=== PATIENT | male | born 1950 | race Caucasian/White ===

== ENCOUNTER → 2022-08-22 14:40 | Outpatient (CLI) | payer MEDICARE, OTHER, SELFPAY ==
--- NOTE | 2022-08-22 14:43 | DI.RAD.S_ITS ---
PROCEDURE: XR RIBS RT MIN 3V W CXR 1V INDICATIONS: fall, right side rib pain TECHNIQUE: 4 views of the right ribs were acquired, along with a single view chest. COMPARISON: None. FINDINGS: Surgical changes and devices: None. Bones and chest wall: No fractures or dislocations. No suspicious bony lesions. Overlying soft tissues appear unremarkable. Lungs and pleura: No pleural effusions or pneumothorax. Lungs appear clear. Mediastinum: Mediastinal contours appear normal. Heart size is normal. IMPRESSION: No evidence of displaced right rib fracture. No evidence acute pulmonary process. Dictated by: Rufus Urena M.D. on 08/22/2022 at 15:07 Approved by: Rufus Urena M.D. on 08/22/2022 at 15:09
== END ==
PROVIDERS: Referring Provider Student in an Organized Health Care Education/Training Program; Visit Provider Student in an Organized Health Care Education/Training Program
DX: R07.81 Pleurodynia (principal)
CPT/HCPCS: 71101

== ENCOUNTER → 2022-12-09 10:15 | Outpatient (CLI) | payer MEDICARE, OTHER, SELFPAY ==
[2022-12-09 11:45] LABS: Influenza A - CEPHEID Flu A NEGATIVE (NEGATIVE); Influenza B - CEPHEID Flu B NEGATIVE (NEGATIVE); Respiratory Syncytial Virus Negative (Negative)
[2022-12-09 11:55] LABS: COVID-19 CEPHEID 4-PLEX PCR Negative (Negative)
== END ==
PROVIDERS: Visit Provider Nurse Practitioner Family
DX: R53.83 Other fatigue (principal); Z20.828 Contact with and (suspected) exposure to other viral communicable diseases
CPT/HCPCS: 0241U

== ENCOUNTER → 2022-12-17 09:18 | Outpatient (CLI) | payer MEDICARE, OTHER, SELFPAY ==
--- NOTE | 2022-12-17 09:19 | DI.RAD.S_ITS ---
PROCEDURE: XR HIP W PEL IF DONE PARVEEN MIN 4V INDICATIONS: BILATERAL HIP PAIN TECHNIQUE: AP pelvis with lateral view(s) of the bilateral hip(s). COMPARISON: None. FINDINGS: Bones: No fractures or dislocations. Pelvic ring appears intact. No suspicious bony lesions. Mild right and minimal left hip joint space narrowing with marginal spurring. Soft tissues: The visualized bowel gas pattern is normal. No suspicious soft tissue calcifications. Surgical clips projecting over the pelvis. IMPRESSION: Mild right and minimal left osteoarthritic changes of the hips. Dictated by: Cecil Horner M.D. on 12/17/2022 at 13:31 Approved by: Cecil Horner M.D. on 12/17/2022 at 13:33
== END ==
PROVIDERS: Referring Provider Anesthesiology; Visit Provider Anesthesiology
DX: M70.61 Trochanteric bursitis, right hip (principal); M70.62 Trochanteric bursitis, left hip; M16.0 Bilateral primary osteoarthritis of hip; M25.552 Pain in left hip; M25.551 Pain in right hip
CPT/HCPCS: 73522; 99214

== ENCOUNTER → 2023-01-03 06:53 | Outpatient (CLI) | payer MEDICARE, OTHER, SELFPAY ==
[2023-01-03 08:18] LABS: Hemoglobin A1C% w Est Avg Glu 4.9 % (4.0-6.0)
[2023-01-03 08:22] LABS: Add Manual Diff / Slide Review NO; Basophils Absolute Auto 0 /uL (0-100); Eosinophils Absolute Auto 100 /uL (0-450); Eosinophils Percent Auto 1.9 % (2-4); Hematocrit 42.9 % (41-53); Hemoglobin 14.8 g/dL (13.5-17.5); Lymphocytes Absolute Auto 1600 /uL (1100-4500); Mean Corpuscular HGB Conc 34.6 % (30-36); Mean Corpuscular Hemoglobin 31.1 PG (26-34); Mean Corpuscular Volume 90.1 fL (80-100); Monocytes Absolute Auto 600 /uL (0-900); Monocytes Percent Auto 11.7 % (3-14); Neutrophils Absolute Auto 2500 /uL (1500-7000); Neutrophils Percent Auto 51.4 % (50-75); Platelet Count 182 X10^3/uL (150-400); Red Blood Cell Count 4.76 X10^6/uL (4.5-5.9); Red Cell Distribution Width 13.8 % (11.6-14.8); White Blood Cell Count 4.8 X10^3/uL (4.5-11.0)
[2023-01-03 08:27] LABS: Alanine Aminotransferase 32 IU/L (<50); Albumin 4.3 g/dL (3.5-5.0); Albumin Globulin Ratio 1.7 (1.0-2.8); Alkaline Phosphatase 64 U/L (38-126); Aspartate Aminotransferase 24 IU/L (17-59); BUN Creatinine Ratio 31.8 (6-22); Bilirubin Total 0.8 mg/dL (0.2-1.3); Blood Urea Nitrogen 28 mg/dL (9-20); Calcium 9.6 mg/dL (8.4-10.2); Carbon Dioxide 26 mmol/L (22-32); Chloride 104 mmol/L (98-107); Cholesterol 209 mg/dL (140-199); Estimated Glomerular Filt Rate > 60 mL/min (>60); Globulin 2.6 g/dL (1.7-4.1); Glucose 90 mg/dL (80-110); HDL Cholesterol 48 mg/dL (40-60); HEMOLYSIS < 15 (0-50); LDL Cholesterol Calculated 139 mg/dL (<100); Potassium 4.6 mmol/L (3.4-5.1); Sodium 138 mmol/L (137-145); Total Protein 6.9 g/dL (6.3-8.2); Triglycerides 109 mg/dL (35-150)
[2023-01-03 10:50] LABS: Hep C Virus Ab w/Reflex Quant NEGATIVE s/c (NEGATIVE)
== END ==
PROVIDERS: PCP Family Medicine; Referring Provider Family Medicine; Visit Provider Family Medicine
DX: Z00.00 Encounter for general adult medical examination without abnormal findings (principal); E78.5 Hyperlipidemia, unspecified; R35.1 Nocturia; Z11.59 Encounter for screening for other viral diseases; N13.8 Other obstructive and reflux uropathy; N40.1 Benign prostatic hyperplasia with lower urinary tract symptoms; Z12.5 Encounter for screening for malignant neoplasm of prostate
CPT/HCPCS: 36415; 80053; 80061; 83036; 84153; 85025; 86803

== ENCOUNTER 2023-01-31 08:50 | Emergency (ER) | payer MEDICARE, OTHER, SELFPAY ==
[2023-01-31 08:59] VITALS: BP 148/91; PULSE 95; RESP 16; TEMP 36.7; O2SAT 100; BMI 25.8
--- NOTE | 2023-01-31 11:24 | ED.SKABFB ---
HPI - Skin/Abscess/Foreign Bdy General Chief complaint: Skin/Abscess/Foreign Body Stated complaint: rash on face and fever,chills,aches Time Seen by Provider: 01/31/23 09:01 Source: patient Mode of arrival: Ambulatory Limitations: no limitations History of Present Illness HPI narrative: This is a 72-year-old male presenting to the emergency department due to a right-sided rash for the last 5 days as well as some fevers and chills. He was reporting a redness affecting the right side of his face with some dull aching pain. Denies any vesicles or open wounds. He is had subjective fevers and chills. Patient states that he had this as well couple of months ago which eventually improved on its own. He is tried Benadryl and hydrocortisone cream without any improvement. Related Data Previous Rx's Medication Instructions Recorded tamsulosin 0.4 mg capsule 0.4 mg PO DAILY #30 caps 01/02/23 sodium,potassium,mag sulfates 17.5 See Rx Instructions PO .COMPLEX 02/03/23 gram-3.13 gram-1.6 gram oral soln #354 mL (Suprep Bowel Prep Kit) atorvastatin 20 mg tablet 40 mg (2 x 20 mg) PO DAILY #90 tabs 02/20/23 Allergies Allergy/AdvReac Type Severity Reaction Status Date / Time No Known Drug Allergies Allergy Verified 02/02/23 09:53 Review of Systems Review of Systems Narrative: GENERAL: Reports fever and chills, denies sweats. HEENT: Denies sinus pain, ear pain, sore throat, difficulty swallowing, dizziness. RESPIRATORY: Denies dyspnea, cough, wheezing, hemoptysis, sputum. CARDIOVASCULAR: Denies chest pain, palpitations, orthopnea, edema, GASTROINTESTINAL: Denies nausea, vomiting, abdominal pain, diarrhea, constipation, melena. : Denies dysuria, frequency, incontinence, hematuria, urinary retention. MUSCULOSKELETAL: denies weakness, joint pain, or bony pain SKIN: Rash affecting right side of face NEUROLOGIC: Denies weakness, headache, numbness, change in speech, confusion, seizures, incoordination. PSYCHIATRIC: No concerning psychosocial issues. 12 point review of systems is negative except for those stated above Patient History Medical History Wears glasses Hearing loss Knee pain (~2000) Fractures Measles (~195) Bilateral primary osteoarthritis of hip Bilateral hip pain (~2018) Greater trochanteric bursitis of both hips Surgical History Anesthesia H/O hemorrhoidectomy Hx of tonsillectomy (~1966) H/O knee surgery (~2001) H/O hernia repair Family History Father Lung cancer Mother Natural Social History marital status: number of children: 4 household members: spouse lives independently: Yes housing: house education level: college occupational status: other (retired) current occupational exposures/hazards: No 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 HEAD: Atraumatic. Normocephalic. EYES: Pupils equal round and reactive. Extraocular motions intact. No scleral icterus. No injection or drainage. No pain with ocular movement. ENT: Nose without bleeding, purulent drainage. Throat without erythema, tonsillar hypertrophy or exudate. Airway patent. NECK: Trachea midline. Non tender CARDIOVASCULAR: Regular rate and rhythm without murmurs, gallops, or rubs. RESPIRATORY: Clear to auscultation. Breath sounds equal bilaterally. No wheezes, rales, or rhonchi. GASTROINTESTINAL: Abdomen soft, non-tender, nondistended. EXTREMITIES: No edema or joint tenderness. BACK: Nontender without deformity or crepitance. No flank tenderness. NEURO: AOx3. SKIN: Erythematous rash affecting the right side of the face. There was no evidence of any kind of abscesses or open wounds. It is somewhat tight and warm to the touch. No vesicles or rash in the inner ear canal or affecting the conjunctiva of the right ear. Initial Vital Signs Initial Vital Signs: Vital Signs Temperature 98.0 F 01/31/23 08:59 Pulse Rate 95 H 01/31/23 08:59 Respiratory Rate 16 01/31/23 08:59 Blood Pressure 148/91 H 01/31/23 08:59 Pulse Oximetry 100 01/31/23 08:59 Oxygen Delivery Method Room Air 01/31/23 08:59 Course Vital Signs Vital signs: Vital Signs - 8 hr 01/31/23 12:01 Pulse Rate 77 Respiratory Rate 12 Blood Pressure 138/72 Pulse Oximetry 98 Oxygen Delivery Method Room Air MDM - Skin/Abscess/Foreign Bdy MDM Narrative Medical decision making narrative: MDM * differential diagnosis includes but not limited to cellulitis, preseptal cellulitis, orbital cellulitis, shingles, allergic reaction * Prior records reviewed: Patient was seen 2 months ago for shingles with the walk-in clinic with concerns for redness, burning pain to the right side of his face. Patient was started on valacyclovir. He was later seen 4 days later with reports of the improvement of the right side of his face but he feels a burning pain across his head and left side of face. He was also feeling very fatigued and had fever. Patient was instructed to continue taking the valacyclovir as well as anti-inflammatory. * My lab interpretation: None obtained * My imgaing interpretation: None obtained * Clinical Decision Rules/Scores evaluated: None * Independent discussions with: None ED Course: This is a 72-year-old male presents emergency department due to a rash affecting the right side of his face as well as some fevers and chills. The rash does not appear to be shingles like in nature as he is not describe any neuropathic pain or any open vesicles. The rash is diffuse across the right side of his face. He has applied hydrocortisone cream and use Benadryl without any relief and do not suspect that this is allergic in nature. We will treat for possible cellulitic infection with oral antibiotics. He states that the rash began near his right ear and is not any significantly more localized around the right eye and lower concern for a preseptal cellulitis. He is not have any pain with ocular movement and no ocular symptoms and will not treat for orbital cellulitis. He isn't have any vesicles in his ear. We will prescribe oral antibiotics and recommended he follow up with his primary care provider for further testing. Based on history low concern for MRSA. Shared Decision Making: Discussed plan with patient who is comfortable with the plan. Social Considerations: None Disposition: Discharged to home Discharge Plan Departure Patient Disposition: Home Clinical Impression: Cellulitis Instructions: DI for Cellulitis -- Adult Activity Restrictions/Additional Instructions: Thank you for coming to the [facility] Emergency Department today. As we discussed we will treat you for possible bacterial cause of the rash affecting the right side of her face. I also recommend you speak with the primary care provider for follow-up if your symptoms continue as they will be able to do further testing like we discussed. Please use Tylenol for any fevers. I hope you feel better soon. Please follow up with your primary care provider within a week if your symptoms continue. If you do not have a primary care provider please contact the [facility] Resource line at [phone]. They will ask some questions about your medical history and help you get set up with a provider in the community. Prescriptions: No Action tamsulosin 0.4 mg capsule 0.4 mg PO DAILY Qty: 30 2RF sodium,potassium,mag sulfates [Suprep Bowel Prep Kit] 17.5-3.13-1.6 gram recon soln See Rx Instructions PO .COMPLEX Qty: 354 0RF Rx Instructions: take as directed by Physician atorvastatin 20 mg tablet 40 mg PO DAILY Qty: 90 2RF Referrals: Camilo Santos MD [Primary Care Provider] - Stand Alone Forms: Patient Portal/API
[2023-01-31 12:01] VITALS: BP 138/72; PULSE 77; RESP 12; O2SAT 98
== END 2023-01-31 12:02 | disposition home or self-care (01) ==
PROVIDERS: Emergency Provider Physician Assistant Medical; PCP Family Medicine
DX: L03.211 Cellulitis of face (principal)
CPT/HCPCS: 99281

== ENCOUNTER 2023-02-02 09:42 | Emergency (ER) | payer MEDICARE, OTHER, SELFPAY ==
[2023-02-02 09:46] VITALS: BP 129/75; PULSE 81; RESP 14; TEMP 36.6; O2SAT 100; BMI 25.8
--- NOTE | 2023-02-02 10:30 | PC.NURSE ---
Broken blood vessel in pts L eye. Not effecting vision, not painful. Pt is currently being treated for R sided facial cellulitis which is improving.
--- NOTE | 2023-02-02 10:42 | ED_ITS ---
HPI - Eye Problem General Chief complaint: Eye Problems Stated complaint: here T-2 for Celulitis, swelling in face Time Seen by Provider: 02/02/23 10:42 Source: patient Mode of arrival: Ambulatory Limitations: no limitations Related Data Previous Rx's Medication Instructions Recorded tamsulosin 0.4 mg capsule 0.4 mg PO DAILY #30 caps 01/02/23 atorvastatin 20 mg tablet 40 mg (2 x 20 mg) PO DAILY #90 tabs 01/07/23 cephalexin 500 mg capsule 500 mg PO QID 10 days #40 caps 01/31/23 Allergies Allergy/AdvReac Type Severity Reaction Status Date / Time No Known Drug Allergies Allergy Verified 02/02/23 09:53 Review of Systems Review of Systems ROS Unobtainable: All systems reviewed & are unremarkable except as noted in HPI and below Patient History Medical History Bilateral primary osteoarthritis of hip Bilateral hip pain Greater trochanteric bursitis of both hips Surgical History H/O hemorrhoidectomy Hx of tonsillectomy H/O knee surgery H/O hernia repair Family History Father Lung cancer Mother Natural Social History marital status: number of children: 4 household members: spouse lives independently: Yes housing: house education level: college occupational status: other (retired) current occupational exposures/hazards: No 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 Smoking Status: Never smoker alcohol intake: former substance use type: does not use Smoking Status: Never smoker alcohol intake frequency: holidays/special occasions only Substance Use Type: marijuana Exam Initial Vital Signs Initial Vital Signs: Vital Signs Temperature 97.8 F 02/02/23 09:46 Pulse Rate 81 02/02/23 09:46 Respiratory Rate 14 02/02/23 09:46 Blood Pressure 129/75 02/02/23 09:46 Pulse Oximetry 100 02/02/23 09:46 Oxygen Delivery Method Room Air 02/02/23 09:46 Course Vital Signs Vital signs: Vital Signs - 8 hr 02/02/23 09:46 Temperature 97.8 F Pulse Rate 81 Respiratory Rate 14 Blood Pressure 129/75 Pulse Oximetry 100 Oxygen Delivery Method Room Air Discharge Plan Departure Prescriptions: No Action tamsulosin 0.4 mg capsule 0.4 mg PO DAILY Qty: 30 2RF atorvastatin 20 mg tablet 40 mg PO DAILY Qty: 90 2RF cephalexin 500 mg capsule 500 mg PO QID 10 Days Qty: 40 0RF Referrals: Camilo Santos MD [Primary Care Provider] -
--- NOTE | 2023-02-02 11:17 | ED_ITS ---
HPI - Eye Problem <Mary Chiu PA-C - Last Filed: 02/02/23 19:49> General Chief complaint: Eye Problems Stated complaint: here T-2 for Celulitis, swelling in face Time Seen by Provider: 02/02/23 10:42 Source: patient Mode of arrival: Ambulatory History of Present Illness HPI Narrative: Patient is a 72 yo male reporting for evaluation of redness in the lateral corner of his left eye starting this morning. He denies any vision change to his left eye nor any pain with eye movement. He was seen in the emergency department 2 days ago for redness and swelling on the right side of his face which started around his right ear in his spread midline toward his right eye. He denies any pain in his right eye or redness with his right eye. He says since taking the cephalexin antibiotic prescribe that his redness and swelling has been improving. He denies having a follow up scheduled with primary care at this time. He states he does have a primary care Dr. Santos. Denies any fever. He does state that he is had some headaches at night since the rash onset. He reports that he is not had any diagnosis of high blood pressure nor takes any anticoagulants. He denies any trauma to his head. He denies any blurriness or double vision. Patient denies any neck pain or stiffness nor numbness, tingling or weakness in bilateral extremities. He denies risk of foreign body in his left eye. Related Data Previous Rx's Medication Instructions Recorded tamsulosin 0.4 mg capsule 0.4 mg PO DAILY #30 caps 01/02/23 atorvastatin 20 mg tablet 40 mg (2 x 20 mg) PO DAILY #90 tabs 01/07/23 cephalexin 500 mg capsule 500 mg PO QID 10 days #40 caps 01/31/23 Allergies Allergy/AdvReac Type Severity Reaction Status Date / Time No Known Drug Allergies Allergy Verified 02/02/23 09:53 Review of Systems <Mary Chiu PA-C - Last Filed: 02/02/23 19:49> Review of Systems Narrative: see HPI Patient History <Mary Chiu PA-C - Last Filed: 02/02/23 19:49> Medical History Wears glasses Hearing loss Knee pain (~2000) Fractures Measles (~1958) Bilateral primary osteoarthritis of hip Bilateral hip pain (~2018) Greater trochanteric bursitis of both hips Surgical History Anesthesia H/O hemorrhoidectomy Hx of tonsillectomy (~1966) H/O knee surgery (~2001) H/O hernia repair Family History Father Lung cancer Mother Natural Social History marital status: number of children: 4 household members: spouse lives independently: Yes housing: house education level: college occupational status: other (retired) current occupational exposures/hazards: No 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 Well-developed patient, in no acute distress. HEAD: Atraumatic. Normocephalic. EYES: Pupils equal round and reactive. Light reflex in same location bilate rally, Extraocular motions intact bilaterally without pain, peripheral vision intact bilaterally. No scleral icterus. Right conjunctiva clear. Subconjunctival hemorrhage in lateral corner of left eye, no swelling of left upper and lower eyelid, right eyelid has some puffiness in the upper lid with no erythema, no edema or erythema in the left lower lid. ENT: TMs pearly gilbert with good COL, Nontender to mastoid, tragus or pinna palpation. NECK: Trachea midline. Non tender. CARDIOVASCULAR: Regular rate and rhythm without murmurs, gallops, or rubs. RESPIRATORY: Clear to auscultation. Breath sounds equal bilaterally. No wheezes, rales, or rhonchi. NEURO: AOx3. SKIN: Mild erythema over left cheek with no presence of vesicles, nor abscess <DO Jeferson Mackey Last Filed: 02/02/23 19:50> Initial Vital Signs Initial Vital Signs: Vital Signs Temperature 97.8 F 02/02/23 09:46 Pulse Rate 81 02/02/23 09:46 Respiratory Rate 14 02/02/23 09:46 Blood Pressure 129/75 02/02/23 09:46 Pulse Oximetry 100 02/02/23 09:46 Oxygen Delivery Method Room Air 02/02/23 09:46 Course <Mary Chiu PA-C - Last Filed: 02/02/23 19:49> Vital Signs Vital signs: Vital Signs - 8 hr 02/02/23 11:46 Pulse Rate 70 Respiratory Rate 14 Blood Pressure 123/73 Pulse Oximetry 98 Oxygen Delivery Method Room Air <DO Jeferson Mackey Last Filed: 02/02/23 19:50> Vital Signs Vital signs: Vital Signs - 8 hr 02/02/23 11:46 Pulse Rate 70 Respiratory Rate 14 Blood Pressure 123/73 Pulse Oximetry 98 Oxygen Delivery Method Room Air MDM - Eye Problem <MARLON Blackman Last Filed: 02/02/23 19:49> MDM Narrative Medical decision making narrative: Patient is a 72-year-old male presenting with symptoms consistent with left- sided subconjunctival hemorrhage. He denied any change to visual acuity. Was seen in the emergency department 2 days ago for cellulitis of the right side of his face. These 2 condition seem to be unrelated. He noted that the swelling of the right side of his face seem to be improving. Regarding the subconjunctival hemorrhage of his left eye, recommend no further treatment is necessary at this time. I advised him to follow up for further evaluation in the emergency department however if he should develop any left eye pain, change in vision or other concerning symptoms. No fluorescein staining was done as patient had no concern for foreign body involvement in no pain with eye movement. Patient does not appear to have disruption to acuity on physical examination. Findings and discharge diagnosis discussed with patient/family followed by verbalization of understanding Return precautions discussed with patient/family whom verbalize understanding of diagnosis and plan Discharge Plan Departure Patient Disposition: Home Clinical Impression: Subconjunctival hemorrhage, non-traumatic Qualifiers: Laterality: left Qualified Code(s): H11.32 - Conjunctival hemorrhage, left eye Instructions: DI for Subconjunctival Hemorrhage Activity Restrictions/Additional Instructions: Thank you for coming in today for care. You were seen today for evaluation of redness on the lateral side of your left eye. Your physical exam and history are consistent with a subconjunctival hemorrhage today. This should resolve over the next couple of weeks with no complications. There was no specific treatment needed. It appears to be unrelated to the cellulitis on the right side of your face. I am pleased to see that as we discussed, it appears your ce llulitis is improving based upon previous clinical report and your own observation. I recommend continuing follow up with primary care provider for continued evaluation to ensure continued healing. I recommend that you follow up in the emergency department if you should develop any vision change or pain with eye movement in your right or left eye, any numbness or tingling or weakness in extremities, or worsening of the swelling in the right side of your face. Prescriptions: No Action tamsulosin 0.4 mg capsule 0.4 mg PO DAILY Qty: 30 2RF atorvastatin 20 mg tablet 40 mg PO DAILY Qty: 90 2RF cephalexin 500 mg capsule 500 mg PO QID 10 Days Qty: 40 0RF Referrals: Camilo Santos MD [Primary Care Provider] - Stand Alone Forms: Patient Portal/API ED Sign-out <Agnes Mendez DO - Last Filed: 02/02/23 19:50> Cosign ED Attending Blaine Attestation: I was immediately available in the department for consultation. Documentation has been reviewed. Case was discussed.
[2023-02-02 11:46] VITALS: BP 123/73; PULSE 70; RESP 14; O2SAT 98
== END 2023-02-02 11:46 | disposition home or self-care (01) ==
PROVIDERS: Emergency Provider Physician Assistant; PCP Family Medicine
DX: H11.32 Conjunctival hemorrhage, left eye (principal)
CPT/HCPCS: 99281

== ENCOUNTER → 2023-02-14 08:39 | Outpatient (CLI) | payer MEDICARE, OTHER, SELFPAY | PROVIDERS: PCP Family Medicine; Referring Provider Family Medicine; Visit Provider Family Medicine | DX: Z23 Encounter for immunization (principal) | CPT/HCPCS: 90471; 90686 ==

== ENCOUNTER 2023-04-08 07:38 | Day surgery (SDC) | payer MEDICARE, OTHER, SELFPAY ==
--- NOTE | 2023-04-08 | PATH_ITS ---
[facility] Accession Number: [id number] No. of containers..01 Tissue . 01 Material submitted: . colon - ASCENDING POLYP . 01 Diagnosis: A. Ascending Colon Polyp, Polypectomy: Tubular adenoma. MRV 04/15/2023 1444 Local . 01 Electronically signed: . Christie Joe MD, Pathologist NPI- [id number] . 01 Gross description: . ASCENDING POLYP: Received in formalin is 1 fragment(s) of dial, soft tissue measuring 0.4 x 0.2 x 0.2 cm submitted entirely in 1 cassette(s) /RIVER 04/09/2023 1946 Local . 01 Pathologist provided ICD-10: D12.6 . 01 CPT . 863481 Specimen Comment: A courtesy copy of this report has been sent to [phone] Performed at: 01 [facility] [address] [place] [address], [place], [place] [id number] MD Marino Randall MD Phone: [phone]
[2023-04-08 07:45] VITALS: BP 130/81; PULSE 71; RESP 16; TEMP 36.3; O2SAT 100; BMI 25.7
[2023-04-08] MEDS: LACTATED RINGERS 1,000 ML 42 ML IV (08:06)
--- NOTE | 2023-04-08 08:36 | PM.HP.1 ---
History of Present Illness History of Present Illness Date Patient Seen: 04/08/23 Time Patient Seen: 08:36 Chief complaint: Screening Colonoscopy Narrative: 72-year-old man personal history of polyps here for screening colonoscopy. Last colonoscopy 5 years ago in [place] significant for 1 benign polyp. No family history of intestinal malignancy. No abdominal concerns today. [facility] Medical History Wears glasses Hearing loss Knee pain (~2000) Fractures Measles (~1958) Bilateral primary osteoarthritis of hip Bilateral hip pain (~2018) Greater trochanteric bursitis of both hips Surgical History Anesthesia H/O hemorrhoidectomy Hx of tonsillectomy (~1966) H/O knee surgery (~2001) H/O hernia repair Family History Father Lung cancer Mother Natural Social History marital status: number of children: 4 household members: spouse lives independently: Yes housing: house education level: college occupational status: other (retired) current occupational exposures/hazards: No 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 Smoking Status: Former smoker alcohol intake: former substance use type: does not use Meds Home Medications and Allergies Home Medications Medication Instructions Recorded Confirmed Type atorvastatin 20 mg tablet 40 mg (2 x 20 mg) PO DAILY #90 tabs 02/20/23 04/08/23 Rx tamsulosin 0.4 mg capsule 0.4 mg PO DAILY #30 caps 03/26/23 04/08/23 Rx Allergies Allergy/AdvReac Type Severity Reaction Status Date / Time No Known Drug Allergies Allergy Verified 04/02/23 08:32 Exam Vital Signs (past 8 hours): - 04/08/23 07:45 Temperature 97.4 F L Pulse Rate 71 Respiratory Rate 16 Blood Pressure 130/81 Pulse Oximetry 100 Oxygen Delivery Method Room Air Oxygen Delivery Method Room Air Narrative Exam Narrative: General adult man alert oriented no acute distress Chest nonlabored respiration Extremities warm well perfused Assessment & Plan Assessment & Plan narrative: The patient requires colorectal screening and colonoscopy is recommended. Technical details were discussed. Risks, benefits, alternatives explained. Risks including but not limited to myocardial infarction, aspiration, bleeding, pain, missed lesion, incomplete examination, need for further radiographic studies, colonic perforation, and need for major abdominal surgery were discussed. All questions were answered to their satisfaction, and they are in agreement with this plan.
[2023-04-08 09:04] VITALS: BP 97/68; PULSE 68; RESP 16; TEMP 36.3; O2SAT 96
--- NOTE | 2023-04-08 09:07 | P.OP.COLON_ITS ---
Operative Date/Time/Diagnoses Date of procedure: 04/08/23 Time of procedure: 09:07 Pre-op diagnosis: Personal history of colonic polyps Post-op diagnosis: other (Colonic polyps x1) Procedure & Clinicians Study performed: Colonoscopy and polypectomy Same procedure as scheduled: Yes Indications: Personal history of colonic polyps Colorectal screening Surgeon: Jay Chung Procedure Notes Procedure in detail: The history and physical was performed/updated and the patient is ASA class is 2. The procedure was discussed in detail with the patient. Potential risks complications including infection, bleeding, missed diagnosis, perforation, need for surgery, and were explained. Their questions were answered and informed consent was obtained. Patient was brought to the procedure room and placed standard monitoring equipment. The patient's vital signs were monitored continuously throughout the entire procedure. Prior to starting time-out was performed. The patient was placed in the left lateral recumbent position. Procedural sedation was administered by anesthesia. Examination began with a thorough inspection of the perianal area there was no evidence of fissures, fistulae, external hemorrhoids or cutaneous malignancy. The colonoscopy scope was then placed into the anal canal and was advanced to the cecum, which was identified by the ileocecal valve, the appendiceal orifice and the confluence of the taenia. The scope was then slowly withdrawn examining colon thoroughly in all directions, irrigating it of any residual stool. The scope was retroflexed within the rectum The patient tolerated the procedure well. They will be discharged once criteria are met. The prep was of good/excellent quality. The withdrawl time was 7 minutes. FINDINGS * Ascending colon 5 mm polyp removed with Jumbo forceps. Specimen(s): other (Ascending colon polyp) Impression: Colonic polyp x1 Post-procedure Plan for aftercare: Follow-up is dependent on pathology findings likely 5 years Disposition: same day surgery
[2023-04-08 09:09] VITALS: BP 91/58; PULSE 65; RESP 16; O2SAT 97
[2023-04-08 09:17] VITALS: BP 107/69; PULSE 65; RESP 16; O2SAT 98
[2023-04-08 09:20] VITALS: BP 107/69; PULSE 63; RESP 20; O2SAT 97
== END 2023-04-08 09:37 | disposition home or self-care (01) ==
PROVIDERS: PCP Family Medicine; Referring Provider Surgery; Visit Provider Surgery
PROC: 0DJD8ZZ Inspection of Lower Intestinal Tract, Via Natural or Artificial Opening Endoscopic (ICD-10-PCS; CPT 45378; principal; 2023-04-08 08:45)
DX: Z12.11 Encounter for screening for malignant neoplasm of colon (principal); Z86.010 Personal history of colon polyps; D12.2 Benign neoplasm of ascending colon
CPT/HCPCS: 45380; J2704

== ENCOUNTER → 2023-04-30 15:58 | Outpatient (CLI) | payer MEDICARE, OTHER, SELFPAY ==
--- NOTE | 2023-04-30 16:01 | DI.MRI.S_ITS ---
PROCEDURE: MR KNEE LT WO CON INDICATIONS: Left knee pain, status post meniscus repair TECHNIQUE: Noncontrast sagittal PD fast spin echo, STIR, and T2 fast spin echo with fat saturation, sagittal 3-D FLASH with fat saturation; coronal T1 spin echo and STIR, and axial PD fast spin echo with fat saturation and STIR through the knee. COMPARISON: [facility], CR, XR KNEE LT 3V, 04/30/2023, 16:02. FINDINGS: Image quality: Significant magnetic field inhomogeneity is noted on centered sequences with failure of fat suppression. Additional sequences were obtained using metal artifact reduction techniques. Diagnostic information is obtained. Anterior cruciate ligament: Intact. Posterior cruciate ligament: Intact. Medial collateral ligament: Intact. Lateral collateral ligament: Intact. Medial meniscus: There is irregular appearance of the posterior horn and posterior body of the medial meniscus that may be related to prior surgery but is suspicious for recurrent tearing. A small meniscal flap is seen at the junction of the posterior horn and body of the medial meniscus extending into the medial tibial gutter. There appears to be partial tearing at the posterior root attachment of the medial meniscus without significant meniscal extrusion. Lateral meniscus: Intact. Medial and lateral tendons: The semimembranosus tendon insertions appear intact. Visualized portions of the pes anserinus tendons appear normal. The popliteus tendon is intact. Iliotibial band appears normal. Anterior structures: The quadriceps and patellar tendons appear intact. No patellar subluxation. No femoral trochlear dysplasia or ventral trochlear prominence. Mild scarring in the infrapatellar fat pad. Bones and cartilage: No bone marrow contusions or fractures. Medial femorotibial cartilage: Focal high-grade cartilage loss and surrounding cartilage delamination are seen in the central weight-bearing portion of the medial femoral condyle, together measuring up to 14 x 14 mm in greatest dimensions with associated subchondral edema. Lateral femorotibial cartilage: No focal cartilage defect. Patellofemoral cartilage: High-grade cartilage irregularity is seen at the trochlear groove and adjacent portions of the medial and lateral femoral trochlea. Soft tissues: There is a small joint effusion. Trace medial popliteal cyst. The musculature surrounding the knee is normal in bulk. IMPRESSION: 1. Contour irregularity of the posterior horn and body of the medial meniscus may be related to the prior meniscal repair, but is suspicious for recurrence complex tearing. A small inferiorly displaced meniscal flap component is seen at the junction of the posterior horn and body. There appears to be partial tearing of the posterior root attachment of the medial meniscus without significant meniscal extrusion. 2. Focal high-grade versus full-thickness cartilage defect at the central weight-bearing portion of the medial femoral condyle with surrounding cartilage delamination measuring up to 14 x 14 mm with associated subchondral edema. 3. 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 4. Cruciate and collateral ligaments are intact. No acute trabecular bone injury. 5. Small joint effusion. Approved by: Tony Shen M.D. on 05/01/2023 at 9:45
--- NOTE | 2023-04-30 16:01 | DI.RAD.S_ITS ---
PROCEDURE: XR KNEE LT 3V INDICATIONS: Left knee pain TECHNIQUE: 3 views of the knee were acquired. COMPARISON: None. FINDINGS: Bones: No fractures or dislocations. Mild tricompartmental osteoarthritis is seen with joint space narrowing, subchondral sclerosis and small marginal osteophyte formation. No significant patellar subluxation. No suspicious bony lesions. Soft tissues: No joint effusion. No suspicious soft tissue calcifications. IMPRESSION: Mild tricompartmental osteoarthritis. No fracture or dislocation. No significant joint effusion. Dictated by: Alon Macias M.D. on 04/30/2023 at 16:56 Approved by: Alon Macias M.D. on 04/30/2023 at 16:57
== END ==
LOC: MRI 16:00
PROVIDERS: PCP Family Medicine; Referring Provider Anesthesiology; Visit Provider Anesthesiology
DX: M17.12 Unilateral primary osteoarthritis, left knee (principal); M25.562 Pain in left knee; M25.462 Effusion, left knee; M94.262 Chondromalacia, left knee
CPT/HCPCS: 73562; 73721

== ENCOUNTER 2023-05-07 13:57 | Emergency (ER) | payer MEDICARE, OTHER, SELFPAY ==
[2023-05-07 13:59] VITALS: BP 149/78; PULSE 95; RESP 20; TEMP 36.4; O2SAT 99; BMI 26.5
--- NOTE | 2023-05-07 14:51 | PC.NURSE ---
patient denies accident recently, changes to his diet, claims his diet is full of fiber. He was in a hurry to leave. He appeared well.
--- NOTE | 2023-05-07 16:57 | ED_ITS ---
HPI - Abdominal Pain <Leslye Morrison PA-C - Last Filed: 05/07/23 17:02> General Chief Complaint: Abdominal Pain Stated Complaint: constipation Source: patient Mode of arrival: Family Vehicle History of Present Illness HPI narrative: Patient is a 72-year-old male who presents with concern for fecal impaction. He reports a screening colonoscopy 2 weeks ago that was normal. He does not have a history of impaction, endorses intermittent constipation that is not severe. He reports that he has not had a bowel movement in 2-3 days, which is sometimes normal for him. This was not causing any trouble until about 2 hours prior to arrival when he developed severe rectal pain and pressure. He has not taken any stool softeners or laxatives or tried any therapy. He denies urinary symptoms, fever, chills, nausea or vomiting. Related Data Previous Rx's Medication Instructions Recorded atorvastatin 20 mg tablet 40 mg (2 x 20 mg) PO DAILY #90 tabs 02/20/23 tamsulosin 0.4 mg capsule 0.4 mg PO DAILY #30 caps 03/26/23 Allergies Allergy/AdvReac Type Severity Reaction Status Date / Time No Known Drug Allergies Allergy Verified 04/22/23 11:51 Review of Systems <Leslye Morrison PA-C - Last Filed: 05/07/23 17:02> Review of Systems ROS Unobtainable: All systems reviewed & are unremarkable except as noted in HPI and below Patient History <Leslye Morrison PA-C - Last Filed: 05/07/23 17:02> Medical History Wears glasses Hearing loss Knee pain (~2000) Fractures Measles (~1958) Bilateral primary osteoarthritis of hip Bilateral hip pain (~2018) Greater trochanteric bursitis of both hips Surgical History Anesthesia H/O hemorrhoidectomy Hx of tonsillectomy (~1966) H/O knee surgery (~2001) H/O hernia repair Family History Father Lung cancer Mother Natural Social History marital status: number of children: 4 household members: spouse lives independently: Yes housing: house education level: college occupational status: other (retired) current occupational exposures/hazards: No 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 Well-developed patient, in no acute distress. NEURO: AOx3. HEAD: Atraumatic. Normocephalic. EYES: Pupils equal round and reactive. Extraocular motions intact. No scleral icterus. No injection or drainage. ENT: Nose without bleeding or purulent drainage. Airway patent. RESPIRATORY: No increased work of breathing GASTROINTESTINAL: Abdomen soft, non-tender, nondistended. No CVA tenderness EXTREMITIES: No edema or joint tenderness. SKIN: No rash or erythema of visible areas Initial Vital Signs Initial Vital Signs: Vital Signs Temperature 97.5 F L 05/07/23 13:59 Pulse Rate 95 H 05/07/23 13:59 Respiratory Rate 20 05/07/23 13:59 Blood Pressure 149/78 H 05/07/23 13:59 Pulse Oximetry 99 05/07/23 13:59 Oxygen Delivery Method Room Air 05/07/23 13:59 <Agnes Mendez DO - Last Filed: 05/13/23 09:41> Initial Vital Signs Initial Vital Signs: Vital Signs Temperature 97.5 F L 05/07/23 13:59 Pulse Rate 95 H 05/07/23 13:59 Respiratory Rate 20 05/07/23 13:59 Blood Pressure 149/78 H 05/07/23 13:59 Pulse Oximetry 99 05/07/23 13:59 Oxygen Delivery Method Room Air 05/07/23 13:59 Course <Leslye Morrison PA-C - Last Filed: 05/07/23 17:02> Vital Signs Vital signs: Vital Signs - 8 hr 05/07/23 13:59 Temperature 97.5 F L Pulse Rate 95 H Respiratory Rate 20 Blood Pressure 149/78 H Pulse Oximetry 99 Oxygen Delivery Method Room Air <Agnes Ceballosk, DO - Last Filed: 05/13/23 09:41> Vital Signs Vital signs: Vital Signs - 8 hr 05/07/23 13:59 Temperature 97.5 F L Pulse Rate 95 H Respiratory Rate 20 Blood Pressure 149/78 H Pulse Oximetry 99 Oxygen Delivery Method Room Air MDM - Abdominal Pain <Leslye Morrison PA-C - Last Filed: 05/07/23 17:02> MDM Narrative Medical decision making narrative: Multiple etiologies for patient's symptoms considered including, but not limited to: Constipation, fecal impaction, diverticulitis, colitis Patient went to the bathroom immediately upon arriving in the emergency room. Patient remained there for some time and then came out and reported that the situation is resolved. He seeks no further evaluation. He did not want a rectal exam. States he passed a large stool and feels much better. Discussed management of constipation to include increasing hydration, increasing fiber, increase in activity, using MiraLax daily to titrate until stooling once per day with a soft, easy to pass stool. Patient states understanding. Patient un derstands return precautions. Patient's symptoms improved over duration of stay with above-stated therapies. Findings and discharge diagnosis discussed with patient/family followed by verbalization of understanding Return precautions discussed with patient/family whom verbalize understanding of diagnosis and plan Discharge Plan Departure Patient Disposition: Home Clinical Impression: Acute constipation Instructions: DI for Constipation Activity Restrictions/Additional Instructions: *You have been diagnosed with acute constipation. This seems to have resolved during your visit. I am reassured that you recently had a normal screening colonoscopy. Make sure you are drinking plenty of water, eating a high-fiber diet, and staying active. If you notice that you are having more issues with constipation, try adding a fiber supplement such as Metamucil to see if this improves your stooling pattern. You can also use a medication such as polyethylene glycol or MiraLax to help you stool more easily and regularly. Please return if this recurs and you are unable to pass stool. *What to do: *Please continue to take your regular medications as directed. [ ] New medication prescriptions sent to your pharmacy: [ ] [ ] New medication written as a paper prescription [x] No new medications given *Please follow up with your primary care provider in 2-3 days, call for an appointment. Let them know you were seen in the Emergency Department and that we ask that you be seen in follow up. We will electronically transmit a record of today's note if your PCP is in our system *If you do not have a primary care provider please contact the [facility] Resource line at [phone]. They will ask some questions about your medical history and help get you set up with a doctor in the community. *Return to Emergency Department if you should have any new, worsening or concerning symptoms, such as [fever greater than 101 F, shaking chills, worsening pain, persistent vomiting or other concerning symptoms]. Prescriptions: No Action atorvastatin 20 mg tablet 40 mg PO DAILY Qty: 90 2RF tamsulosin 0.4 mg capsule 0.4 mg PO DAILY Qty: 30 2RF Referrals: Camilo Santos MD [Primary Care Provider] - Stand Alone Forms: Patient Portal/API ED Sign-out <Agnes Mendez DO - Last Filed: 05/13/23 09:41> Cosign ED Attending Sashaature Attestation: I was immediately available in the department for consultation.
== END 2023-05-07 14:54 | disposition home or self-care (01) ==
PROVIDERS: Emergency Provider Physician Assistant; PCP Family Medicine
DX: K59.00 Constipation, unspecified (principal)
CPT/HCPCS: 99281

== ENCOUNTER → 2023-09-19 13:15 | Outpatient (CLI) | payer MEDICARE, OTHER, SELFPAY ==
--- NOTE | 2023-09-19 13:16 | DI.MRI.S_ITS ---
PROCEDURE: MR KNEE LT WO CON INDICATIONS: History of meniscus tear, left knee pain TECHNIQUE: Noncontrast sagittal PD fast spin echo and T2 fast spin echo with fat saturation, sagittal 3-D FLASH with fat saturation; coronal T1 spin echo and PD fast spin echo with fat saturation, and axial PD fast spin echo with fat saturation through the knee. COMPARISON: [facility], MR, MR KNEE LT WO CON, 04/30/2023, 16:22. FINDINGS: Image quality: Excellent. Menisci: Truncated appearance of medial meniscus is seen consistent with remote partial medial meniscectomy. There is signal abnormality involving posterior horn remanent of medial meniscus extending to inferior articulating surface consistent with oblique tear. The lateral meniscus is intact. The meniscal root ligaments appear intact. Cruciate ligaments: The anterior and posterior cruciate ligaments appear intact. Medial structures: The medial collateral ligament appears intact. Visualized portions of the pes anserinus tendons appear normal. No abnormal bursal fluid. Lateral structures: The lateral collateral ligament, long and short heads of the biceps femoris tendon appear intact. The popliteus tendon appears normal. Iliotibial band appears normal. Anterior structures: The quadriceps and patellar tendons appear intact. Patellar alignment is normal. No femoral trochlear dysplasia or ventral trochlear prominence. No edema in the infrapatellar fat pad. Bones and cartilage: [id number] tricompartmental osteoarthritis and chondromalacia is again seen most notably in medial femoral tibial compartment. No fracture or dislocation. Joint space: There is small knee joint fluid. No Fair's cyst. Normal appearing synovial plicae are incidentally noted. IMPRESSION: 1. Suggestion of prior partial medial meniscectomy. Suggestion of oblique tear involving posterior horn remanent of medial meniscus extending to inferior articulating surface. The lateral meniscus is intact. 2. The cruciate ligaments are intact. 3. [id number] tricompartmental osteoarthritis and chondromalacia most notably in medial femoral tibial compartment. No fracture or dislocation. Small joint effusion, no loose bodies. Dictated by: Alon Macias M.D. on 09/19/2023 at 17:03 Approved by: Alon Macias M.D. on 09/19/2023 at 17:08
== END ==
PROVIDERS: PCP Family Medicine; Referring Provider Anesthesiology; Visit Provider Anesthesiology
DX: M17.12 Unilateral primary osteoarthritis, left knee (principal); M94.262 Chondromalacia, left knee; M25.462 Effusion, left knee; M25.569 Pain in unspecified knee; S83.207A Unspecified tear of unspecified meniscus, current injury, left knee, initial encounter
CPT/HCPCS: 73721

== ENCOUNTER → 2024-02-05 07:01 | Outpatient (CLI) | payer MEDICARE, OTHER, SELFPAY ==
[2024-02-05 08:15] LABS: Hematocrit 44.1 % (41-53); Hemoglobin 15.4 g/dL (13.5-17.5); Mean Corpuscular HGB Conc 34.9 % (30-36); Mean Corpuscular Hemoglobin 31.6 PG (26-34); Mean Corpuscular Volume 90.8 fL (80-100); Platelet Count 195 X10^3/uL (150-400); Red Blood Cell Count 4.85 X10^6/uL (4.5-5.9); Red Cell Distribution Width 12.9 % (11.6-14.8); White Blood Cell Count 4.9 X10^3/uL (4.5-11.0)
[2024-02-05 08:46] LABS: Blood Urea Nitrogen 24 mg/dL (9-20); Calcium 9.2 mg/dL (8.4-10.2); Carbon Dioxide 26 mmol/L (22-32); Chloride 108 mmol/L (98-107); Cholesterol 144 mg/dL (140-199); Estimated Glomerular Filt Rate > 60 mL/min (>60); Glucose 91 mg/dL (80-110); HDL Cholesterol 47 mg/dL (40-60); HEMOLYSIS < 15 (0-50); LDL Cholesterol Calculated 84 mg/dL (<100); Potassium 4.5 mmol/L (3.4-5.1); Sodium 139 mmol/L (137-145); Triglycerides 67 mg/dL (35-150)
[2024-02-05 09:12] LABS: Prostate Specific Antigen Scrn 1.83 ng/mL (0.1-4.0)
== END ==
PROVIDERS: PCP Family Medicine; Referring Provider Family Medicine; Visit Provider Family Medicine
DX: E78.5 Hyperlipidemia, unspecified (principal); Z12.5 Encounter for screening for malignant neoplasm of prostate; Z13.9 Encounter for screening, unspecified; N40.1 Benign prostatic hyperplasia with lower urinary tract symptoms; N13.8 Other obstructive and reflux uropathy; S83.207D Unspecified tear of unspecified meniscus, current injury, left knee, subsequent encounter; G47.9 Sleep disorder, unspecified
CPT/HCPCS: 36415; 80048; 80061; 85027; G0103

== ENCOUNTER → 2024-03-30 11:26 | Outpatient (CLI) | payer MEDICARE, OTHER, SELFPAY | PROVIDERS: PCP Family Medicine; Visit Provider Urology | DX: N40.1 Benign prostatic hyperplasia with lower urinary tract symptoms (principal); N13.8 Other obstructive and reflux uropathy | CPT/HCPCS: 87086 ==

== ENCOUNTER 2024-04-05 07:51 | Day surgery (SDC) | payer MEDICARE, OTHER, SELFPAY ==
[2024-03-29 13:40] VITALS: BMI 25.8
[2024-04-05] VITALS (7 sets, daily range): BP systolic 99–139; BP diastolic 54–87; PULSE 16–73; RESP 12–99; TEMP 36.1–36.3; O2SAT 97–99; BMI 25.8
--- NOTE | 2024-04-05 | PATH_ITS ---
[facility] Accession Number: [id number] No. of containers..01 Tissue . 01 Material submitted: . prostate - PROSTATE CHIPS . 01 Diagnosis: PROSTATE, TRANSURETHRAL RESECTION: Benign prostatic parenchyma. Prominent smooth muscle bundles, consistent with muscularis propria of bladder neck. No evidence of malignancy. [facility] 04/09/2024 1050 Local . 01 Electronically signed: . Gilberto Green MD, PhD, Pathologist NPI- [id number] . 01 Gross description: . Received in formalin with two patient identifiers and prostate chips, are multiple dial soft tissue fragments admixed with a small amount of hemorrhagic material weighing 4 grams and aggregating to 4.0 x 3.8 x 0.7 cm. The specimen is submitted entirely in A1-A3. ([id number]) /MRV 04/08/2024 1558 Local . 01 Pathologist provided ICD-10: N40.1 . 01 CPT . 413029 Specimen Comment: A courtesy copy of this report has been sent to [facility] Performed at: [address] [address], [place], [place] [id number] MD Marino Randall MD Phone: [phone]
[2024-04-05] MEDS: LACTATED RINGERS 1,000 ML 21 ML IV ×2 (08:41→11:09)
--- NOTE | 2024-04-05 09:34 | PM.PREOP ---
Pre-operative Note COVID-19 COVID-19 status: Not tested Interval Note History & Physical reviewed/Exam performed by Physician: Yes Changes to H&P: No
[2024-04-05] MEDS: CEFAZOLIN 2 GM/100 ML PREMIX 100 ML IV (10:00)
--- NOTE | 2024-04-05 10:22 | SUR.OPER ---
Lithotomy on padded OR bed, head on pillow, arms secured on padded arm boards at <90 degrees abduction. Legs secured in padded yellow fins stirrups.
--- NOTE | 2024-04-05 11:43 | PM.OP.1 ---
Procedure & Clinicians Procedure: Cystoscopy Aquablation Same procedure as scheduled: Yes Indications: 73 y/o M w/ symptoms consistent w/ BPH and LUTS that were refractory to medical treatment and strongly desired management via an Aquablation procedure. Surgeon: Michael Hayden Click Yes if Unassisted: Yes Anesthesia Type: General Operative Notes Findings: Coaptating lateral prostatic lobes with a small intravesical median lobe, TRUS prostate volume 52g. Closure Type: not applicable Specimen(s): other (prostate chips) Applied: catheter Estimated Blood Loss (mL): 50 Blood products transfused: none Procedure in detail: After informed consent was obtained, the patient was identified brought to the operating room where he was placed in his supine position on the table.? Once there anesthesia was induced and maintained.? Ensuring an adequate level of anesthesia the patient was transitioned to the lithotomy position where after time-out he was prepped.? After prepping, ensuring an adequate level of anesthesia, administration IV antibiotics and time-out 60 cc of ultrasound gel was instilled within the rectum and the ultrasound probe which had been attached to the TRUS stepper which was attached to the TRUS stepper articulating arm which was secured to the bed was advanced into the rectum under direct vision via the ultrasound.? The ultrasound probe was then aligned and confirmation made that the prostate was centered and aligned in both the sagittal and transverse views.? The bladder neck, verumontanum, central and transitional zones were identified.? With the ultrasound in place and adjusted the patient was then draped in a sterile fashion. With the patient draped the 24 Wallisian aqua beam handpiece was then inserted through the urethra and advanced into the bladder.? Cystoscopy was then performed and no concerning bladder mass or lesions were noted.? Bilateral ureteral orifices were noted to be orthotopic in nature.? As the cystoscope was advanced the level of the sphincter, verumontanum, bladder neck were all identified via ultrasound and under direct vision.? The aqua beam hand place was then secured to the handpiece articulating arm which had been secured to the bed.? The Aquablation handpiece and TRUS probe were confirmed to be parallel and colinear.? Confirmation was then made that the aqua beam handpiece and nozzle was centered and anterior to the bladder neck. ?The cystoscope was then retracted under direct vision in the sphincter and verumontanum were identified.? The tip of the cystoscope was then placed proximal to the external sphincter.? Compression was applied with the TRUS probe to the prostate.? The alignment of the TRUS probe and aqua beam handpiece was once again confirmed.? Horizontal alignment of the handpiece water jet was then performed.? With these adjustments made, the treatment zones were then planned using real-time ultrasound.? In the largest transverse view of the prostate the depth and radial angles were determined and set again in the transverse view of the prostate.? In the longitudinal and sagittal view the Aquablation nozzle was identified and its position registered with the software and robot.? The treatment contours were then determined and adjusted to reflect the intended margins of resection.? Following our plan confirmation, the Aquablation resection treatment was started.? A 2nd pass was then completed in similar fashion after the 1st pass had been completed.? At this point, the Aqua hand piece was removed from the urethra. The 26Fr resectoscope was then inserted into the urethra and cystoscopy was repeated.? The Elik construction coordinator was utilized to evacuate the blood clots from the bladder.? The bladder neck was then resected using the bipolar Gyrus loop.? Bilateral ureteral orifices were again identified and noted to be intact at case end.? Hemostasis was obtained and noted to be excellent at case end.? The resectoscope was then removed and a 24Fr Erica 3-way hematuria catheter was inserted through the urethra and into the bladder.? 45cc of sterile water was utilized for balloon insufflation.? Efflux was noted to be clear at case end.? Anesthesia was reversed, he was extubated in the OR and transferred to the PACU in stable condition for recovery. Complications: none Post-operative Condition: stable Disposition: PACU Plan for aftercare: Will run continuous bladder irrigation for the next few hours. If efflux remains clear as CBI is titrated down, will be discharged home with price catheter in place and return to Urology clinic on 08 Apr 2024 for a voiding trial.
[2024-04-05] MEDS: OXYCODONE IR 5 MG TABLET PO (15:15)
== END 2024-04-05 15:28 | disposition home or self-care (01) ==
PROVIDERS: PCP Family Medicine; Referring Provider Urology; Visit Provider Urology
PROC: 0VT08ZZ Resection of Prostate, Via Natural or Artificial Opening Endoscopic (ICD-10-PCS; CPT 52597; principal; 2024-04-05 09:45)
DX: N40.1 Benign prostatic hyperplasia with lower urinary tract symptoms (principal); R33.9 Retention of urine, unspecified; R39.12 Poor urinary stream; R35.0 Frequency of micturition; R35.1 Nocturia
CPT/HCPCS: 0421T; C2596; J0330; J0690; J1100; J2405; J2704; J3010

== ENCOUNTER → 2025-02-09 09:10 | Outpatient (CLI) | payer MEDICARE, OTHER, SELFPAY ==
[2025-02-09 10:40] LABS: Prostate Specific Antigen 0.973 ng/mL (0.10-4.00)
== END ==
PROVIDERS: PCP Family Medicine; Referring Provider Urology; Visit Provider Urology
DX: N40.1 Benign prostatic hyperplasia with lower urinary tract symptoms (principal); N13.8 Other obstructive and reflux uropathy; Z12.5 Encounter for screening for malignant neoplasm of prostate
CPT/HCPCS: 36415; 84153